=== PATIENT | male | born 1940 | race Caucasian/White ===

== ENCOUNTER 2019-11-22 09:13 | Inpatient (IN) ==
[2019-11-22] MEDS ORDERED: DILTIAZEM 50 MG/10 ML VIAL IV STA (09:35)
[2019-11-22] MEDS ORDERED: SODIUM CHLORIDE 0.9% 500 ML IV STA (09:35)
[2019-11-22 09:46] LABS: Basophils # 0.1 10*3/uL (0.0-0.2); Basophils % 0.4 % (0.0-0.8); Eosinophils # 0.1 10*3/uL (0.0-0.87); Eosinophils % 0.5 % (0.00-10.9); Hematocrit 41.3 VOL% (42.0-52.0); Hemoglobin 14.2 GM/DL (14.0-18.0); Immature Granulocytes % 0.9 %; Immature Granulocytes Absolute 0.22 #; Lymphocytes # 1.2 10*3/uL (1.4-4.0); Lymphocytes % 5.2 % (21.2-54.2); Mean Corpuscular HGB Conc 34.4 GM/DL (32-36); Mean Corpuscular Volume 89.4 FL (87-102); Mean Platelet Volume 9.9 FL (9.6-12.0); Monocytes % 3.7 % (1.7-12.7); Neutrophils % 89.3 % (38.7-73.9); Platelet Count 328 T/CUMM (130-400); Red Blood Count 4.62 MC/CUMM (3.8-5.5); Red Cell Distribution Width 13.6 % (9.3-17.3); White Blood Count 23.2 T/CUMM (4-12)
[2019-11-22 09:59] LABS: Albumin 2.8 G/DL (3.4-5.0); Calcium 9.8 MG/DL (8.5-10.1); Osmolality,Calculated 277.4 MOS/KG (273-304); Total Protein 7.3 G/DL (6.4-8.3)
[2019-11-22] MEDS ORDERED: dilTIAZem Drip 125 MG/125 ML PREMIX IV SCH (10:00)
[2019-11-22 10:07] LABS: Eosinophils 1 % (0-10); Lymphocytes 4 % (20-55); Platelet Estimate Adequate; Segmented Neutrophils 93 % (50-85); Total Cells Counted 100
[2019-11-22] MEDS ORDERED: cefTRIAXone 1,000 MG in SODIUM CHLORIDE 0.9% 100 ML IV STA (10:26)
[2019-11-22] MEDS ORDERED: AZITHROMYCIN 250 MG TABLET PO STA (10:26)
[2019-11-22] MEDS ORDERED: cefTRIAXone 1,000 MG in SYRINGE 1 EACH IV STA (10:31)
[2019-11-22] MEDS ORDERED: ACETAMINOPHEN 325 MG TABLET PO PRN (10:44)
[2019-11-22] MEDS ORDERED: DEXTROSE 50% 25 GM/50 ML VIAL IV PRN (10:44)
[2019-11-22] MEDS ORDERED: GLUCAGON 1 MG VIAL IM PRN (10:44)
[2019-11-22] MEDS ORDERED: BISACODYL 5 MG TABLET PO PRN (10:44)
[2019-11-22] MEDS ORDERED: ONDANSETRON 4 MG/2 ML VIAL IV PRN (10:44)
[2019-11-22 10:46] LABS: Ferritin 560.1 ng/ml (26-388)
[2019-11-22] MEDS ORDERED: METOPROLOL TARTRATE 25 MG TABLET PO STA (10:49)
[2019-11-22] MEDS ORDERED: ENOXAPARIN 40 MG/0.4 ML SYRINGE SUBCUT SCH (11:00)
[2019-11-22] MEDS ORDERED: NAPROXEN 250 MG TABLET PO PRN (11:05)
[2019-11-22] MEDS ORDERED: CYANOCOBALAMIN 1000 MCG/1 ML VIAL IM SCH (11:30)
[2019-11-22] MEDS: SODIUM CHLORIDE 0.9% 1,000 ML IV SCH ×2 (12:30→21:10)
[2019-11-22] MEDS ORDERED: ENOXAPARIN 60 MG/0.6 ML SYRINGE ONE (13:06)
[2019-11-22] MEDS ORDERED: PIPERACILLIN/TAZOBACTAM 3,375 MG VIAL IV ONE (13:06)
[2019-11-22] MEDS ORDERED: SODIUM CHLORIDE 0.9% 100 ML IV ONE (13:06)
[2019-11-22] MEDS: PIPERACILLIN/TAZOBACTAM 3,375 MG in SODIUM CHLORIDE 0.9% 100 ML IV SCH ×2 (13:07→21:07)
[2019-11-22] MEDS: ENOXAPARIN 60 MG/0.6 ML SYRINGE SUBCUT SCH (13:07)
[2019-11-22] MEDS: DILTIAZEM 60 MG TABLET PO SCH ×2 (13:35→21:07)
[2019-11-22] MEDS ORDERED: DICLOXACILLIN 500 MG PO SCH (15:00)
[2019-11-22 17:01] LABS: Apearance,Urine CLEAR (Clear); Bilirubin,Urine Negative (Negative); Blood, Urine Negative (Negative); Glucose,Urine (UA) 150 mg/dL (Negative); Hyaline Casts,Urine 1 /LPF (0-3); Ketones,Urine Negative (Negative); Mucus,Urine Occasional /LPF (Occasional); Nitrite,Urine Negative (Negative); Protein,Urine Negative; RBC,Urine 3 /HPF (0-4); Squamous Epithelial Cell,Urine Occasional /HPF (0-10); Urine Specific Gravity 1.027 (1.001-1.035); WBC,Urine 4 /HPF (0-6)
[2019-11-22 17:11] LABS: Urine Color Yellow (Yellow)
[2019-11-22] MEDS ORDERED: METOPROLOL TARTRATE 25 MG TABLET PO SCH (21:00)
[2019-11-22] MEDS ORDERED: METOPROLOL SUCCINATE XL 25 MG TABLET PO SCH (21:00)
[2019-11-22] MEDS: GABAPENTIN 400 MG CAPSULE PO SCH (21:06)
[2019-11-22] MEDS: OMEGA 3 ACID ETHYL ESTERS 1 GM CAPSULE PO SCH (21:06)
[2019-11-22] MEDS: FOLIC ACID 0.4 MG TABLET PO SCH (21:06)
[2019-11-22] MEDS: MONTELUKAST 10 MG TABLET PO SCH (21:07)
[2019-11-22] MEDS: ASPIRIN EC 81 MG TABLET PO SCH (21:07)
[2019-11-22] MEDS: METOPROLOL SUCCINATE XL 25 MG TABLET PO SCH (21:07)
[2019-11-23] MEDS: ENOXAPARIN 60 MG/0.6 ML SYRINGE SUBCUT SCH (02:51)
[2019-11-23] MEDS: DILTIAZEM 60 MG TABLET PO SCH (04:40)
[2019-11-23] MEDS: PIPERACILLIN/TAZOBACTAM 3,375 MG in SODIUM CHLORIDE 0.9% 100 ML IV SCH ×3 (04:40→22:26)
[2019-11-23] MEDS: SODIUM CHLORIDE 0.9% 1,000 ML IV SCH (04:40)
[2019-11-23 05:55] LABS: Basophils # 0.1 10*3/uL (0.0-0.2); Basophils % 0.4 % (0.0-0.8); Eosinophils # 0.2 10*3/uL (0.0-0.87); Eosinophils % 0.8 % (0.00-10.9); Hematocrit 34.2 VOL% (42.0-52.0); Hemoglobin 11.7 GM/DL (14.0-18.0); Immature Granulocytes Absolute 0.21 #; Lymphocytes # 0.9 10*3/uL (1.4-4.0); Lymphocytes % 4.4 % (21.2-54.2); Mean Corpuscular HGB Conc 34.2 GM/DL (32-36); Mean Corpuscular Volume 89.3 FL (87-102); Mean Platelet Volume 10.4 FL (9.6-12.0); Monocytes % 3.6 % (1.7-12.7); Neutrophils % 89.8 % (38.7-73.9); Platelet Count 287 T/CUMM (130-400); Red Blood Count 3.83 MC/CUMM (3.8-5.5); Red Cell Distribution Width 13.8 % (9.3-17.3); White Blood Count 20.6 T/CUMM (4-12)
[2019-11-23] MEDS: LEVOTHYROXINE 75 MCG TABLET PO SCH (06:01)
[2019-11-23 06:12] LABS: Risk Ratio 5.8; VLDL CHOLESTEROL 21.4 MG/DL
[2019-11-23 06:14] LABS: Albumin 2.2 G/DL (3.4-5.0); Bilirubin,Total 1.1 MG/DL (0.2-1.0); Calcium 9.2 MG/DL (8.5-10.1); Osmolality,Calculated 280.7 MOS/KG (273-304); Total Protein 6.4 G/DL (6.4-8.3)
[2019-11-23 06:22] LABS: Eosinophils 1 % (0-10); Lymphocytes 3 % (20-55); Platelet Estimate Adequate; Segmented Neutrophils 94 % (50-85); Total Cells Counted 100
[2019-11-23 06:23] LABS: Hypochromasia 1+; Microcytosis Slight
[2019-11-23] MEDS: OMEGA 3 ACID ETHYL ESTERS 1 GM CAPSULE PO SCH ×2 (08:30→21:57)
[2019-11-23] MEDS: LORATADINE 10 MG TABLET PO SCH (08:30)
[2019-11-23] MEDS: SERTRALINE 25 MG TABLET PO SCH (08:30)
[2019-11-23] MEDS: METOPROLOL SUCCINATE XL 25 MG TABLET PO SCH ×2 (08:30→21:58)
[2019-11-23] MEDS: PANTOPRAZOLE 40 MG TABLET PO SCH (08:30)
[2019-11-23] MEDS: DILTIAZEM CD 120 MG CAPSULE PO SCH (08:30)
[2019-11-23] MEDS: LACTOBACILLUS ACIDOPHILUS/BULGARICUS CAPLET PO SCH (08:33)
[2019-11-23] MEDS ORDERED: CLOPIDOGREL 75 MG TABLET PO SCH (09:00)
[2019-11-23] MEDS ORDERED: AMIODARONE INJ 150 MG in DEXTROSE 5% 100 ML IV ONE (09:42)
[2019-11-23] MEDS ORDERED: AMIODARONE INJ 450 MG in DEXTROSE 5% 241 ML IV SCH (10:00)
[2019-11-23] MEDS: AMIODARONE INJ 450 MG in DEXTROSE 5% 241 ML IV SCH (16:12)
[2019-11-23] MEDS ORDERED: MIRTAZAPINE 15 MG TABLET PO SCH (21:00)
[2019-11-23] MEDS: FOLIC ACID 0.4 MG TABLET PO SCH (21:57)
[2019-11-23] MEDS: MONTELUKAST 10 MG TABLET PO SCH (21:58)
[2019-11-23] MEDS: APIXABAN 5 MG TABLET PO SCH (21:58)
[2019-11-23] MEDS: ASPIRIN EC 81 MG TABLET PO SCH (21:58)
[2019-11-23] MEDS: GABAPENTIN 400 MG CAPSULE PO SCH (22:06)
[2019-11-24] MEDS: PIPERACILLIN/TAZOBACTAM 3,375 MG in SODIUM CHLORIDE 0.9% 100 ML IV SCH ×2 (04:25→13:47)
[2019-11-24] MEDS: LEVOTHYROXINE 75 MCG TABLET PO SCH (06:15)
[2019-11-24] MEDS: LACTOBACILLUS ACIDOPHILUS/BULGARICUS CAPLET PO SCH (09:46)
[2019-11-24] MEDS: PANTOPRAZOLE 40 MG TABLET PO SCH (09:46)
[2019-11-24] MEDS: SERTRALINE 25 MG TABLET PO SCH (09:46)
[2019-11-24] MEDS: APIXABAN 5 MG TABLET PO SCH (09:46)
[2019-11-24] MEDS: OMEGA 3 ACID ETHYL ESTERS 1 GM CAPSULE PO SCH (09:46)
[2019-11-24] MEDS: LORATADINE 10 MG TABLET PO SCH (09:46)
[2019-11-24] MEDS: METOPROLOL SUCCINATE XL 25 MG TABLET PO SCH (09:46)
[2019-11-24] MEDS: DILTIAZEM CD 120 MG CAPSULE PO SCH (09:46)
[2019-11-24 11:34] LABS: Calcium 8.8 MG/DL (8.5-10.1); Osmolality,Calculated 274.4 MOS/KG (273-304)
[2019-11-24 11:36] VITALS: BP 99/48
[2019-11-24] MEDS ORDERED: AMIODARONE 200 MG TABLET PO SCH (12:30)
[2019-11-24] MEDS: AMIODARONE INJ 450 MG in DEXTROSE 5% 241 ML IV SCH (13:47)
[2019-12-03] MEDS ORDERED: TESTOSTERONE CYPIONATE 1,000 MG/10 ML VIAL IM SCH (09:00)
== END 2019-11-24 16:10 | disposition home or self-care (01) | DRG 308 ==
LOC: EDUNIT# → EDBD → N.ED 09:13 → N.EDINP 10:44 → N.TELES 14:44
PROVIDERS: ADMIT Internal Medicine; ATTEND Internal Medicine

== ENCOUNTER 2019-12-07 13:05 | Observation (INO) ==
[2019-12-07 14:57] LABS: Basophils # 0.1 10*3/uL (0.0-0.2); Basophils % 0.4 % (0.0-0.8); Eosinophils % 0.1 % (0.00-10.9); Hematocrit 35.6 VOL% (42.0-52.0); Hemoglobin 11.8 GM/DL (14.0-18.0); Immature Granulocytes % 1.4 %; Immature Granulocytes Absolute 0.41 #; Lymphocytes % 3.6 % (21.2-54.2); Mean Corpuscular HGB Conc 33.1 GM/DL (32-36); Mean Corpuscular Volume 93.7 FL (87-102); Mean Platelet Volume 9.9 FL (9.6-12.0); Monocytes % 3.5 % (1.7-12.7); Platelet Count 402 T/CUMM (130-400); Red Cell Distribution Width 14.3 % (9.3-17.3); White Blood Count 28.3 T/CUMM (4-12)
[2019-12-07 14:59] LABS: Albumin 2.6 G/DL (3.4-5.0); Bilirubin,Total 0.6 MG/DL (0.2-1.0); Osmolality,Calculated 272.7 MOS/KG (273-304); Total Protein 6.8 G/DL (6.4-8.3)
[2019-12-07 14:59] LABS: Ferritin 552.4 ng/ml (26-388)
[2019-12-07 15:11] LABS: INR 1.1; PT Patient Result 11.8 SECS (9.8-11.9); Partial Thromboplastin Time 28.1 SECS (23.9-33.8)
[2019-12-07] MEDS ORDERED: GLUCAGON 1 MG VIAL IM PRN (16:56)
[2019-12-07] MEDS ORDERED: ONDANSETRON 4 MG/2 ML VIAL IV PRN (16:56)
[2019-12-07] MEDS ORDERED: ACETAMINOPHEN 325 MG TABLET PO PRN (16:56)
[2019-12-07] MEDS ORDERED: DEXTROSE 50% 25 GM/50 ML VIAL IV PRN (16:56)
[2019-12-07] MEDS ORDERED: CYANOCOBALAMIN 1000 MCG/1 ML VIAL IM SCH (17:00)
[2019-12-07 17:19] LABS: Band Neutrophils 7 % (0-10); Lymphocytes 3 % (20-55); Platelet Estimate Normal; Segmented Neutrophils 82 % (50-85); Total Cells Counted 100
[2019-12-07 21:35] LABS: INR 1.1
[2019-12-07] MEDS: GABAPENTIN 400 MG CAPSULE PO SCH (21:54)
[2019-12-07] MEDS: FOLIC ACID 0.4 MG TABLET PO SCH (21:54)
[2019-12-07] MEDS: SODIUM CHLORIDE 0.9% 1,000 ML IV SCH (21:54)
[2019-12-07] MEDS: PIPERACILLIN/TAZOBACTAM 3,375 MG in SODIUM CHLORIDE 0.9% 100 ML IV SCH (21:54)
[2019-12-07] MEDS: predniSONE 10 MG TABLET PO SCH (21:55)
[2019-12-07] MEDS: MIRTAZAPINE 15 MG TABLET PO SCH (21:56)
[2019-12-07] MEDS: METOPROLOL SUCCINATE XL 50 MG TABLET PO SCH (21:56)
[2019-12-07] MEDS: AMIODARONE 200 MG TABLET PO SCH (21:56)
[2019-12-08 04:56] LABS: Basophils # 0.1 10*3/uL (0.0-0.2); Basophils % 0.3 % (0.0-0.8); Eosinophils % 0.1 % (0.00-10.9); Hematocrit 37.7 VOL% (42.0-52.0); Hemoglobin 12.7 GM/DL (14.0-18.0); Immature Granulocytes % 1.7 %; Immature Granulocytes Absolute 0.44 #; Lymphocytes # 0.8 10*3/uL (1.4-4.0); Lymphocytes % 3.2 % (21.2-54.2); Mean Corpuscular HGB Conc 33.7 GM/DL (32-36); Monocytes % 3.3 % (1.7-12.7); Neutrophils % 91.4 % (38.7-73.9); Platelet Count 392 T/CUMM (130-400); Red Cell Distribution Width 14.1 % (9.3-17.3); White Blood Count 25.5 T/CUMM (4-12)
[2019-12-08 05:18] LABS: Band Neutrophils 4 % (0-10); Hypochromasia 1+; Lymphocytes 1 % (20-55); Segmented Neutrophils 94 % (50-85); Total Cells Counted 100
[2019-12-08 05:19] LABS: Microcytosis 1+; Platelet Estimate Normal
[2019-12-08 05:22] LABS: Calcium 10.4 MG/DL (8.5-10.1); Osmolality,Calculated 273.4 MOS/KG (273-304)
[2019-12-08] MEDS: PIPERACILLIN/TAZOBACTAM 3,375 MG in SODIUM CHLORIDE 0.9% 100 ML IV SCH ×3 (05:36→21:48)
[2019-12-08] MEDS: LEVOTHYROXINE 75 MCG TABLET PO SCH (05:37)
[2019-12-08] MEDS: PANTOPRAZOLE 40 MG TABLET PO SCH (08:48)
[2019-12-08] MEDS: FLUTICASONE/SALMETEROL 500-50 DISKUS 14 DOSE INH SCH (08:48)
[2019-12-08] MEDS: LORATADINE 10 MG TABLET PO SCH (08:49)
[2019-12-08] MEDS: LACTOBACILLUS ACIDOPHILUS/BULGARICUS CAPLET PO SCH (08:49)
[2019-12-08] MEDS: SERTRALINE 25 MG TABLET PO SCH (08:49)
[2019-12-08] MEDS: AMIODARONE 200 MG TABLET PO SCH ×2 (08:49→21:49)
[2019-12-08] MEDS: METOPROLOL SUCCINATE XL 50 MG TABLET PO SCH ×2 (08:49→21:49)
[2019-12-08] MEDS: OMEGA 3 ACID ETHYL ESTERS 1 GM CAPSULE PO SCH (08:50)
[2019-12-08] MEDS: INSULIN REGULAR 100 UNIT/ML SUBCUT SCH ×3 (12:38→21:51)
[2019-12-08] MEDS: SODIUM CHLORIDE 0.9% 1,000 ML IV SCH ×2 (17:05→17:09)
[2019-12-08] MEDS: FOLIC ACID 0.4 MG TABLET PO SCH (21:49)
[2019-12-08] MEDS: GABAPENTIN 400 MG CAPSULE PO SCH (21:49)
[2019-12-08] MEDS: MIRTAZAPINE 15 MG TABLET PO SCH (21:49)
[2019-12-08] MEDS: predniSONE 10 MG TABLET PO SCH (21:49)
[2019-12-09] MEDS: SODIUM CHLORIDE 0.9% 1,000 ML IV SCH ×2 (03:38→14:45)
[2019-12-09] MEDS: PIPERACILLIN/TAZOBACTAM 3,375 MG in SODIUM CHLORIDE 0.9% 100 ML IV SCH ×3 (05:51→21:17)
[2019-12-09] MEDS: LEVOTHYROXINE 75 MCG TABLET PO SCH (05:51)
[2019-12-09] MEDS: INSULIN REGULAR 100 UNIT/ML SUBCUT SCH ×4 (07:46→21:10)
[2019-12-09] MEDS ORDERED: ASPIRIN EC 81 MG TABLET PO SCH (09:00)
[2019-12-09 10:59] LABS: Amylase,Body Fluid 18 U/L; LDH,Body Fluid 91 U/L; Total Protein,Body Fluid 3.3 G/DL
[2019-12-09] MEDS: OMEGA 3 ACID ETHYL ESTERS 1 GM CAPSULE PO SCH (14:42)
[2019-12-09] MEDS: METOPROLOL SUCCINATE XL 50 MG TABLET PO SCH ×2 (14:42→21:10)
[2019-12-09] MEDS: AMIODARONE 200 MG TABLET PO SCH ×2 (14:43→21:10)
[2019-12-09] MEDS: LACTOBACILLUS ACIDOPHILUS/BULGARICUS CAPLET PO SCH (14:51)
[2019-12-09] MEDS: PANTOPRAZOLE 40 MG TABLET PO SCH (14:51)
[2019-12-09] MEDS: LORATADINE 10 MG TABLET PO SCH (14:52)
[2019-12-09] MEDS: FLUTICASONE/SALMETEROL 500-50 DISKUS 14 DOSE INH SCH (14:52)
[2019-12-09] MEDS: SERTRALINE 25 MG TABLET PO SCH (14:52)
[2019-12-09] MEDS: MIRTAZAPINE 15 MG TABLET PO SCH (21:10)
[2019-12-09] MEDS: predniSONE 10 MG TABLET PO SCH (21:10)
[2019-12-09] MEDS: GABAPENTIN 400 MG CAPSULE PO SCH (21:10)
[2019-12-09] MEDS: FOLIC ACID 0.4 MG TABLET PO SCH (21:10)
[2019-12-10] MEDS: SODIUM CHLORIDE 0.9% 1,000 ML IV SCH (04:21)
[2019-12-10] MEDS: PIPERACILLIN/TAZOBACTAM 3,375 MG in SODIUM CHLORIDE 0.9% 100 ML IV SCH (04:21)
[2019-12-10] MEDS: LEVOTHYROXINE 75 MCG TABLET PO SCH (06:21)
[2019-12-10 07:34] VITALS: BP 106/52
[2019-12-10] MEDS: OMEGA 3 ACID ETHYL ESTERS 1 GM CAPSULE PO SCH (08:09)
[2019-12-10] MEDS: METOPROLOL SUCCINATE XL 50 MG TABLET PO SCH (08:09)
[2019-12-10] MEDS: LORATADINE 10 MG TABLET PO SCH (08:09)
[2019-12-10] MEDS: INSULIN REGULAR 100 UNIT/ML SUBCUT SCH (08:09)
[2019-12-10] MEDS: PANTOPRAZOLE 40 MG TABLET PO SCH (08:10)
[2019-12-10] MEDS: AMIODARONE 200 MG TABLET PO SCH (08:10)
[2019-12-10] MEDS: SERTRALINE 25 MG TABLET PO SCH (08:10)
[2019-12-10] MEDS: FLUTICASONE/SALMETEROL 500-50 DISKUS 14 DOSE INH SCH (08:10)
[2019-12-10] MEDS: LACTOBACILLUS ACIDOPHILUS/BULGARICUS CAPLET PO SCH (08:10)
[2019-12-28] MEDS ORDERED: TESTOSTERONE CYPIONATE 1,000 MG/10 ML VIAL IM SCH (09:00)
== END 2019-12-10 09:15 | disposition home or self-care (01) ==
LOC: EDUNIT# → EDBD → N.ED 13:05 → N.EDINP 13:05 → N.4E 19:43
PROVIDERS: ADMIT Internal Medicine Geriatric Medicine; ATTEND Internal Medicine Geriatric Medicine